=== PATIENT | male | born 1960 ===

== ENCOUNTER 2020-04-21 07:57 | Outpatient (REF) | payer MEDICARE, MEDICAID, SELFPAY ==
[2020-04-21 08:45] LABS: MANUAL DIFF FLAG NO
[2020-04-21 08:51] LABS: Basophils Absolute Auto 0.1 X10*3/uL (0.0-0.2); Basophils Percent Auto 0.9 % (0-2); Eosinophils Absolute Auto 0.4 X10*3/uL (0.0-0.4); Eosinophils Percent Auto 6.8 % (0-4); Hematocrit 43.7 % (42-52); Hemoglobin 14.6 g/dl (14.0-18.0); Imm Gran Abs Auto 0.01 X10*3/uL (0.00-0.03); Imm Gran Pct Auto 0.2 % (0.0-0.4); Lymphocytes Absolute Auto 2.6 X10*3/uL (1.2-4.9); Lymphocytes Percent Auto 48.3 % (20-40); Mean Corpuscular HGB Conc 33.4 g/dl (31.0-36.0); Mean Corpuscular Volume 86.7 fL (80-98); Monocytes Absolute Auto 0.5 X10*3/uL (0.1-1.2); Monocytes Percent Auto 9.2 % (2-11); Neutrophils Absolute Auto 1.8 X10*3/uL (2.0-8.3); Neutrophils Percent Auto 34.6 % (45-73); Platelet Count 264 X10*3/uL (160-400); Red Blood Count 5.04 X10*6/uL (4.60-5.80); Red Cell Distribution Width 12.4 % (11.0-16.0); White Blood Count 5.3 X10*3/uL (4.8-10.8)
[2020-04-21 09:59] LABS: Alanine Aminotransferase 22 U/L (0-40); Albumin Level 4.4 g/dL (3.5-5.0); Alkaline Phosphatase 57 U/L (39-117); Anion Gap 11 (12-20); Aspartate Amino Transferase 21 U/L (5-37); Bilirubin Total 0.5 mg/dL (0.0-1.0); Blood Urea Nitrogen 13 mg/dL (9-16); Calcium 9.3 mg/dL (8.4-10.2); Carbon Dioxide 28 mmol/L (22-29); Chloride 104 mmol/L (96-108); Cholesterol 241 mg/dL; Estimated Glomerular Filt Rate > 60; Glucose Fasting 96 mg/dL (60-99); HDL Cholesterol 35 mg/dL; LDL Cholesterol Calculated 167 mg/dl; Potassium 4.7 mmol/l (3.3-5.1); Sodium 138 mmol/L (135-145); Total Protein 7.8 g/dL (6.5-8.0); Triglycerides 197 mg/dL
== END 2020-04-21 07:58 | disposition home or self-care (01) ==
LOC: HO.LAB 07:57
PROVIDERS: Visit Provider Internal Medicine Medical Oncology
DX: E78.5 Hyperlipidemia, unspecified (principal); K21.9 Gastro-esophageal reflux disease without esophagitis; D72.820 Lymphocytosis (symptomatic)
CPT/HCPCS: 36415; 80053; 80061; 85025

== ENCOUNTER → 2020-05-13 09:52 | Outpatient (BNVA) | payer MEDICARE, MEDICAID, SELFPAY | PROVIDERS: PCP Internal Medicine Medical Oncology; Referring Provider Internal Medicine Medical Oncology; Visit Provider Orthopaedic Surgery | DX: M22.2X2 Patellofemoral disorders, left knee (principal) | CPT/HCPCS: 99212 ==

== ENCOUNTER 2020-07-12 07:39 | Outpatient (REF) | payer MEDICARE, MEDICAID, SELFPAY ==
[2020-07-12 08:16] LABS: MANUAL DIFF FLAG NO
[2020-07-12 08:18] LABS: Basophils Percent Auto 0.7 % (0-2); Eosinophils Absolute Auto 0.3 X10*3/uL (0.0-0.4); Hematocrit 42.3 % (42-52); Hemoglobin 14.1 g/dl (14.0-18.0); Imm Gran Abs Auto 0.01 X10*3/uL (0.00-0.03); Imm Gran Pct Auto 0.2 % (0.0-0.4); Lymphocytes Absolute Auto 2.8 X10*3/uL (1.2-4.9); Lymphocytes Percent Auto 49.3 % (20-40); Mean Corpuscular HGB Conc 33.3 g/dl (31.0-36.0); Mean Corpuscular Hemoglobin 28.6 pg (27.0-33.0); Mean Corpuscular Volume 85.8 fL (80-98); Mean Platelet Volume 9.7 fL (9.4-12.4); Monocytes Absolute Auto 0.5 X10*3/uL (0.1-1.2); Monocytes Percent Auto 9.4 % (2-11); Neutrophils Percent Auto 34.4 % (45-73); Platelet Count 261 X10*3/uL (160-400); Red Blood Count 4.93 X10*6/uL (4.60-5.80); Red Cell Distribution Width 12.2 % (11.0-16.0); White Blood Count 5.7 X10*3/uL (4.8-10.8)
[2020-07-12 08:46] LABS: Alanine Aminotransferase 20 U/L (0-40); Albumin Level 4.4 g/dL (3.5-5.0); Alkaline Phosphatase 58 U/L (39-117); Anion Gap 11 (12-20); Aspartate Amino Transferase 17 U/L (5-37); Bilirubin Total 0.3 mg/dL (0.0-1.0); Blood Urea Nitrogen 13 mg/dL (9-16); Calcium 9.3 mg/dL (8.4-10.2); Carbon Dioxide 29 mmol/L (22-29); Chloride 104 mmol/L (96-108); Cholesterol 236 mg/dL; Estimated Glomerular Filt Rate > 60; Glucose Fasting 104 mg/dL (60-99); HDL Cholesterol 36 mg/dL; LDL Cholesterol Calculated 168 mg/dl; Potassium 4.7 mmol/l (3.3-5.1); Sodium 139 mmol/L (135-145); Total Protein 7.7 g/dL (6.5-8.0); Triglycerides 164 mg/dL
== END 2020-07-12 07:40 | disposition home or self-care (01) ==
LOC: HO.LAB 07:39
PROVIDERS: PCP Internal Medicine Medical Oncology; Visit Provider Internal Medicine Medical Oncology
DX: E78.5 Hyperlipidemia, unspecified (principal); E66.3 Overweight; E66.9 Obesity, unspecified
CPT/HCPCS: 36415; 80053; 80061; 85025

== ENCOUNTER 2020-08-13 10:59 | Outpatient (REF) | payer MEDICARE, MEDICAID, SELFPAY ==
--- NOTE | ~2020-08-13 | XR_ITS ---
EXAMINATION: XR FOOT, RIGHT CLINICAL INFORMATION: Pain right foot COMPARISON: Radiographs right foot 02/03/2016 TECHNIQUE: AP, lateral, and oblique views of the right foot. FINDINGS: There is a nondisplaced comminuted fracture involving the distal phalanx great toe with longitudinal and horizontal components. The articular surface appears intact. There is no dislocation or destructive process. The remainder of the bony structures appear intact. There is no focal joint narrowing or erosive changes. Bony mineralization normal. XR/XR foot RT min 3V IMPRESSION: Nondisplaced comminuted fracture distal phalanx great toe.
== END 2020-08-13 11:00 | disposition home or self-care (01) ==
LOC: HO.XRAY 10:59
PROVIDERS: PCP Internal Medicine Medical Oncology; Visit Provider Internal Medicine Medical Oncology
DX: M79.671 Pain in right foot (principal)
CPT/HCPCS: 73630

== ENCOUNTER 2020-11-08 07:24 | Outpatient (REF) | payer MEDICARE, MEDICAID, SELFPAY ==
[2020-11-08 07:54] LABS: MANUAL DIFF FLAG NO
[2020-11-08 07:57] LABS: Basophils Absolute Auto 0.1 X10*3/uL (0.0-0.2); Basophils Percent Auto 0.9 % (0-2); Eosinophils Absolute Auto 0.3 X10*3/uL (0.0-0.4); Eosinophils Percent Auto 4.9 % (0-4); Hematocrit 40.2 % (42-52); Hemoglobin 13.4 g/dl (14.0-18.0); Imm Gran Abs Auto 0.01 X10*3/uL (0.00-0.03); Imm Gran Pct Auto 0.2 % (0.0-0.4); Lymphocytes Absolute Auto 2.8 X10*3/uL (1.2-4.9); Lymphocytes Percent Auto 48.2 % (20-40); Mean Corpuscular HGB Conc 33.3 g/dl (31.0-36.0); Mean Corpuscular Hemoglobin 28.5 pg (27.0-33.0); Mean Corpuscular Volume 85.5 fL (80-98); Mean Platelet Volume 9.7 fL (9.4-12.4); Monocytes Absolute Auto 0.6 X10*3/uL (0.1-1.2); Monocytes Percent Auto 10.5 % (2-11); Neutrophils Percent Auto 35.3 % (45-73); Platelet Count 272 X10*3/uL (160-400); Red Cell Distribution Width 12.5 % (11.0-16.0); White Blood Count 5.7 X10*3/uL (4.8-10.8)
[2020-11-08 08:25] LABS: Alanine Aminotransferase 19 U/L (0-40); Albumin Level 4.2 g/dL (3.5-5.0); Alkaline Phosphatase 58 U/L (39-117); Anion Gap 11 (12-20); Aspartate Amino Transferase 18 U/L (5-37); Bilirubin Total 0.6 mg/dL (0.0-1.0); Blood Urea Nitrogen 15 mg/dL (9-16); Calcium 9.4 mg/dL (8.4-10.2); Carbon Dioxide 27 mmol/L (22-29); Chloride 106 mmol/L (96-108); Cholesterol 223 mg/dL; Estimated Glomerular Filt Rate > 60; Glucose Fasting 97 mg/dL (60-99); HDL Cholesterol 34 mg/dL; LDL Cholesterol Calculated 170 mg/dl; Potassium 4.5 mmol/L (3.3-5.1); Sodium 139 mmol/L (135-145); Total Protein 7.5 g/dL (6.5-8.0); Triglycerides 95 mg/dL
== END 2020-11-08 07:25 | disposition home or self-care (01) ==
LOC: HO.LAB 07:24
PROVIDERS: PCP Internal Medicine Medical Oncology; Visit Provider Internal Medicine Medical Oncology
DX: E78.5 Hyperlipidemia, unspecified (principal); E66.3 Overweight
CPT/HCPCS: 36415; 80053; 80061; 85025

== ENCOUNTER → 2020-12-24 14:58 | Outpatient (BNVA) | payer MEDICARE, MEDICAID, SELFPAY | PROVIDERS: PCP Internal Medicine Medical Oncology; Visit Provider Nurse Practitioner Family | DX: Z12.11 Encounter for screening for malignant neoplasm of colon (principal); K59.00 Constipation, unspecified | CPT/HCPCS: 99202 ==

== ENCOUNTER 2021-02-27 11:24 | Day surgery (SDC) | payer MEDICARE, MEDICAID, SELFPAY ==
[2021-01-21 15:21] VITALS: BMI 30.2
--- NOTE | 2021-02-12 10:12 | P.CONAN_ITS ---
Documented by User: Jacki Hicks NP 02/12/21 10:13 HPI - Anesthesia Eval Consult details Narrative: 60yo M for Colonoscopy [facility] Active Problems Active Problems: All Active Problems (Updated 02/06/21 @ 14:17 by Monica Bird RN) Patellofemoral pain syndrome of left knee (Acute) Past Medical History Medical History Arthritis Elevated cholesterol Family History Family History Father No problems noted. Mother No problems noted. 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 Allergies Allergy/AdvReac Type Severity Reaction Status Date / Time No Known Allergies Allergy Verified 02/27/21 12:50 Home Medications Medication Instructions Recorded Confirmed Last Taken Type acetaminophen 500 mg capsule 500 mg PO Q6H PRN 05/12/20 02/06/21 Unknown History Exam Exam Date and Time: February 12, 2021 1012 Height,Weight and Vital Signs: Height 5 ft 8 in Weight 90.265 kg Narrative Narrative: Laboratory Tests 11/08/20 11/08/20 07:32 07:32 WBC 5.7 Hgb 13.4 L Hct 40.2 L Plt Count 272 Sodium 139 Potassium 4.5 Chloride 106 Carbon Dioxide 27 BUN 15 Creatinine 1.16 Assessment and Plan Assessment Anesthesia Assessment: Chart Reviewed Documented by User: Kade Ford MD 02/27/21 13:47 [facility] Past Medical History Medical History Arthritis Elevated cholesterol Family History Family History Father No problems noted. Mother No problems noted. 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
[2021-02-23 16:15] VITALS: BMI 30.2
[2021-02-27 12:17] VITALS: BP 147/82; PULSE 76; RESP 16; TEMP 36.6; O2SAT 97
[2021-02-27] MEDS: Lactated Ringers 1,000 ML 100 ML IVCONT (12:49)
--- NOTE | 2021-02-27 13:13 | MHC.SHP ---
Pre-Procedural Eval Section A Date of Service: 02/27/21 The patient is an INPATIENT: No The History & Physical has been completed within 30 days and I have reviewed it.: No Section B Chief Complaint: Screening, Constipation Details of Present Illness: Colon cancer screening, constipation Relevant Family History (Specify if Yes): No Relevant Social History: None Present Medications: see Short Stay Collaborative assessment Medical History: Significant History (Left knee pain) History of Previous Operations: Relevant previous surgery/procedure and date(s) (History of arthroscopy of right knee History of back surgery History of total right knee replacement (~03/27/12)) Allergies: Allergies Allergy/AdvReac Type Severity Reaction Status Date / Time No Known Allergies Allergy Verified 02/27/21 12:50 Review of Systems Sugical H&P ROS: Negative: Constitution, Cardiovascular, Respiratory and Gastrointestinal Exam Surgical H&P Exam: Normal: Heart, Normal: Lungs, Normal: Extremities and Normal: Abdomen Plan Diagnosis/Plan: Unchanged I have reviewed the history and physical and performed a pertinent physical examination on my patient. No changes have occurred unless specified.
--- NOTE | 2021-02-27 14:03 | W.PM.OPN ---
Operative Note Operative Note Date of Service: 02/27/21 Narrative: Pre-op diagnosis:?Colon cancer screening mild constipation Post-op diagnosis:?other (Colon polyp, diverticulosis, hemorrhoids) Procedure:? COLONOSCOPY TILL CECUM WITH BIOPSIES Consent: Indications for the procedure and potential complications of bleeding, perforation, reaction to medications and missed diagnosis were discussed with the patient and informed consent was obtained. Instrument: Olympus PCF H 190 L variable stiffness pediatric colonoscope Monitoring: Vital signs and clinical assessment, intermittent blood pressure monitoring, continuous EKG monitoring, Pulse oximetry and Carbon Dioxide monitoring were done throughout the procedure. Colon withdrawl time was 20 minutes. Procedure: The patient was placed in the left lateral decubitis position and pre-procedure medications were administered. After a digital rectal examination of the ano-rectum, the video colonoscope was inserted into the rectum and advanced through the colon to the cecum. The colonoscope was slowly withdrawn in a retrograde panoramic fashion and the colon mucosa was carefully examined including a retroflexed view of the rectum. Findings and interventions are described below. Procedure Difficulty: Without difficulty Findings: Terminal Ileum: Not evaluated Cecum:? Normal Ascending Colon:? Normal Transverse Colon:? Normal Descending Colon:? Moderate diverticulosis Sigmoid Colon:? Moderate diverticulosis Rectum: A 5-6 mm sessile polyp removed with a cold bx Ano-rectum:? Moderate internal hemorrhoids Colon preparation:? Good after some irrigation Impression and Post Procedure Diagnosis: Colonoscopy Findings: One small polyp removed Moderate diverticulosis seen in the left colon Moderate hemorrhoids on retroflexed exam. Plan: Await pathology results - patient will be sent a letter with biopsy results Repeat Colonoscopy interval based on path results - in 5 years if polyps are adenomatous and 10 years if polyps are hyperplastic. Colon polyps and diverticulosis handouts were given in the discharge area Surgeon:?Katherine Austin MD Anesthesia:?MAC (Tanisha Fang CRNA) Was an Alum Plant Operator used for this Procedure?:?Yes Alum Plant Operator:?Matheus Qureshi Estimated blood loss (mL):?0 Pathology:?other (A- RECTAL POLYP) Condition:?stable Disposition:?PACU
[2021-02-27 14:45] VITALS: BP 97/65; PULSE 75; RESP 16; TEMP 36.1; O2SAT 97
[2021-02-27 15:00] VITALS: BP 108/71; PULSE 68; RESP 18; O2SAT 98
== END 2021-02-27 15:36 | disposition home or self-care (01) ==
PROVIDERS: PCP Internal Medicine Medical Oncology; Visit Provider Internal Medicine Gastroenterology
PROC: 0DJD8ZZ Inspection of Lower Intestinal Tract, Via Natural or Artificial Opening Endoscopic (ICD-10-PCS; CPT 45378; principal; 2021-02-27 13:10)
DX: Z12.11 Encounter for screening for malignant neoplasm of colon (principal); K59.00 Constipation, unspecified; K63.5 Polyp of colon; K57.30 Diverticulosis of large intestine without perforation or abscess without bleeding; K64.8 Other hemorrhoids
CPT/HCPCS: 45380; 88305

== ENCOUNTER 2021-03-10 07:28 | Outpatient (REF) | payer MEDICARE, MEDICAID, SELFPAY ==
[2021-03-10 08:48] LABS: MANUAL DIFF FLAG NO
[2021-03-10 08:56] LABS: Basophils Absolute Auto 0.1 X10*3/uL (0.0-0.2); Basophils Percent Auto 0.9 % (0-2); Eosinophils Absolute Auto 0.3 X10*3/uL (0.0-0.4); Eosinophils Percent Auto 5.2 % (0-4); Hematocrit 41.5 % (42-52); Hemoglobin 13.9 g/dl (14.0-18.0); Imm Gran Abs Auto 0.01 X10*3/uL (0.00-0.03); Imm Gran Pct Auto 0.2 % (0.0-0.4); Lymphocytes Absolute Auto 2.8 X10*3/uL (1.2-4.9); Mean Corpuscular HGB Conc 33.5 g/dl (31.0-36.0); Mean Corpuscular Hemoglobin 28.6 pg (27.0-33.0); Mean Corpuscular Volume 85.4 fL (80-98); Monocytes Absolute Auto 0.6 X10*3/uL (0.1-1.2); Monocytes Percent Auto 9.9 % (2-11); Neutrophils Absolute Auto 1.9 X10*3/uL (2.0-8.3); Neutrophils Percent Auto 33.8 % (45-73); Platelet Count 275 X10*3/uL (160-400); Red Blood Count 4.86 X10*6/uL (4.60-5.80); Red Cell Distribution Width 12.4 % (11.0-16.0); White Blood Count 5.6 X10*3/uL (4.8-10.8)
[2021-03-10 09:15] LABS: Alanine Aminotransferase 15 U/L (0-40); Albumin Level 4.2 g/dL (3.5-5.0); Alkaline Phosphatase 54 U/L (39-117); Anion Gap 11 (12-20); Aspartate Amino Transferase 19 U/L (5-37); Bilirubin Total 0.6 mg/dL (0.0-1.0); Blood Urea Nitrogen 12 mg/dL (9-16); Calcium 9.7 mg/dL (8.4-10.2); Carbon Dioxide 27 mmol/L (22-29); Chloride 107 mmol/L (96-108); Cholesterol 217 mg/dL; Estimated Glomerular Filt Rate > 60; Glucose Fasting 101 mg/dL (60-99); HDL Cholesterol 33 mg/dL; LDL Cholesterol Calculated 159 mg/dl; Potassium 4.9 mmol/L (3.3-5.1); Sodium 140 mmol/L (135-145); Total Protein 7.4 g/dL (6.5-8.0); Triglycerides 129 mg/dL
== END 2021-03-10 07:29 | disposition home or self-care (01) ==
LOC: HO.LAB 07:28
PROVIDERS: PCP Internal Medicine Medical Oncology; Visit Provider Internal Medicine Medical Oncology
DX: Z12.5 Encounter for screening for malignant neoplasm of prostate (principal); E78.5 Hyperlipidemia, unspecified; E66.9 Obesity, unspecified
CPT/HCPCS: 36415; 80053; 80061; 84153; 85025

== ENCOUNTER 2021-07-14 08:45 | Outpatient (REF) | payer MEDICARE, MEDICAID, SELFPAY ==
[2021-07-14 09:16] LABS: MANUAL DIFF FLAG NO
[2021-07-14 09:18] LABS: Basophils Absolute Auto 0.1 X10*3/uL (0.0-0.2); Basophils Percent Auto 0.9 % (0-2); Eosinophils Absolute Auto 0.4 X10*3/uL (0.0-0.4); Eosinophils Percent Auto 7.5 % (0-4); Hemoglobin 14.3 g/dl (14.0-18.0); Imm Gran Abs Auto 0.01 X10*3/uL (0.00-0.03); Imm Gran Pct Auto 0.2 % (0.0-0.4); Lymphocytes Absolute Auto 2.7 X10*3/uL (1.2-4.9); Lymphocytes Percent Auto 50.6 % (20-40); Mean Corpuscular HGB Conc 33.3 g/dl (31.0-36.0); Mean Corpuscular Hemoglobin 28.9 pg (27.0-33.0); Mean Corpuscular Volume 86.9 fL (80.0-98.0); Mean Platelet Volume 9.6 fL (9.4-12.4); Monocytes Absolute Auto 0.5 X10*3/uL (0.1-1.2); Monocytes Percent Auto 10.1 % (2-11); Neutrophils Absolute Auto 1.7 x10*3/uL (2.0-8.3); Neutrophils Percent Auto 30.7 % (45-73); Platelet Count 268 X10*3/uL (160-400); Red Blood Count 4.95 X10*6/uL (4.60-5.80); Red Cell Distribution Width 12.7 % (11.0-16.0); White Blood Count 5.4 X10*3/uL (4.8-10.8)
[2021-07-14 09:46] LABS: Alanine Aminotransferase 17 U/L (0-40); Albumin Level 4.4 g/dL (3.5-5.0); Alkaline Phosphatase 53 U/L (39-117); Anion Gap 12 (12-20); Aspartate Amino Transferase 21 U/L (5-37); Bilirubin Total 0.6 mg/dL (0.0-1.0); Blood Urea Nitrogen 12 mg/dL (9-16); Carbon Dioxide 27 mmol/L (22-29); Chloride 107 mmol/L (96-108); Cholesterol 250 mg/dL; Estimated Glomerular Filt Rate > 60; Glucose Fasting 104 mg/dL (60-99); HDL Cholesterol 37 mg/dL; LDL Cholesterol Calculated 190 mg/dl; Potassium 4.9 mmol/L (3.3-5.1); Sodium 141 mmol/L (135-145); Total Protein 8.2 g/dL (6.5-8.0); Triglycerides 115 mg/dL
== END 2021-07-14 08:46 | disposition home or self-care (01) ==
LOC: HO.LAB 08:45
PROVIDERS: PCP Internal Medicine Medical Oncology; Visit Provider Internal Medicine Medical Oncology
DX: E66.3 Overweight (principal); E78.5 Hyperlipidemia, unspecified
CPT/HCPCS: 36415; 80053; 80061; 85025

== ENCOUNTER 2021-10-31 07:38 | Outpatient (REF) | payer MEDICARE, MEDICAID, SELFPAY ==
[2021-10-31 08:00] LABS: MANUAL DIFF FLAG NO
[2021-10-31 08:22] LABS: Basophils Absolute Auto 0.1 X10*3/uL (0.0-0.2); Basophils Percent Auto 1.4 % (0-2); Eosinophils Absolute Auto 0.4 X10*3/uL (0.0-0.4); Hematocrit 42.3 % (42.0-52.0); Hemoglobin 14.1 g/dl (14.0-18.0); Imm Gran Abs Auto 0.01 X10*3/uL (0.00-0.03); Imm Gran Pct Auto 0.2 % (0.0-0.4); Lymphocytes Absolute Auto 2.5 X10*3/uL (1.2-4.9); Mean Corpuscular HGB Conc 33.3 g/dl (31.0-36.0); Mean Corpuscular Hemoglobin 28.4 pg (27.0-33.0); Mean Corpuscular Volume 85.1 fL (80.0-98.0); Monocytes Absolute Auto 0.5 X10*3/uL (0.1-1.2); Monocytes Percent Auto 10.3 % (2-11); Neutrophils Absolute Auto 1.7 x10*3/uL (2.0-8.3); Neutrophils Percent Auto 32.1 % (45-73); Platelet Count 257 X10*3/uL (160-400); Red Blood Count 4.97 X10*6/uL (4.60-5.80); Red Cell Distribution Width 12.7 % (11.0-16.0); White Blood Count 5.1 X10*3/uL (4.8-10.8)
[2021-10-31 08:39] LABS: Alanine Aminotransferase 19 U/L (0-40); Albumin Level 4.2 g/dL (3.5-5.0); Alkaline Phosphatase 51 U/L (39-117); Anion Gap 14 (12-20); Aspartate Amino Transferase 20 U/L (5-37); Bilirubin Total 0.6 mg/dL (0.0-1.0); Blood Urea Nitrogen 12 mg/dL (9-16); Calcium 9.5 mg/dL (8.4-10.2); Carbon Dioxide 24 mmol/L (22-29); Chloride 106 mmol/L (96-108); Cholesterol 209 mg/dL; Estimated Glomerular Filt Rate 59; Glucose Fasting 102 mg/dL (60-99); HDL Cholesterol 34 mg/dL; LDL Cholesterol Calculated 158 mg/dl; Potassium 4.7 mmol/L (3.3-5.1); Sodium 139 mmol/L (135-145); Total Protein 7.8 g/dL (6.5-8.0); Triglycerides 86 mg/dL
== END 2021-10-31 07:39 | disposition home or self-care (01) ==
LOC: HO.LAB 07:38
PROVIDERS: PCP Internal Medicine Medical Oncology; Visit Provider Internal Medicine Medical Oncology
DX: E78.5 Hyperlipidemia, unspecified (principal); K21.9 Gastro-esophageal reflux disease without esophagitis; M17.9 Osteoarthritis of knee, unspecified
CPT/HCPCS: 36415; 80053; 80061; 85025

== ENCOUNTER 2021-12-29 14:16 | Outpatient (REF) | payer MEDICARE, MEDICAID, SELFPAY ==
--- NOTE | ~2021-12-29 | XR_ITS ---
EXAMINATION: XR CHEST CLINICAL INFORMATION: Chronic cough. COMPARISON: 07/02/2017 TECHNIQUE: 2 views of the chest were obtained. FINDINGS: Low lung volumes. No focal consolidation. Mild central bronchial wall prominence. No pleural effusion. Cardiac silhouette is unchanged. XR/XR chest 2V IMPRESSION: Prominence of the central bronchi possibly representing bronchitis. Advise clinical correlation.
== END 2021-12-29 14:17 | disposition home or self-care (01) ==
LOC: HO.XRAY 14:16
PROVIDERS: PCP Internal Medicine Medical Oncology; Visit Provider Internal Medicine Medical Oncology
DX: R05.3 Chronic cough (principal)
CPT/HCPCS: 71046

== ENCOUNTER 2022-05-28 | Outpatient (REF) | payer MEDICARE, MEDICAID, SELFPAY ==
--- NOTE | ~2022-05-28 | XR_ITS ---
EXAMINATION: XR knee standing BI, XR knee RT 2V CLINICAL INFORMATION: Reason for Exam M25.569 - Pain in unspecified knee COMPARISON: None. TECHNIQUE: 2 views of the right knee and standing view of the bilateral knees XR/XR knee standing BI FINDINGS/IMPRESSION: * No acute fracture or dislocation. * Postoperative changes related to right total knee arthroplasty without evidence of hardware complication. No large effusion. * No soft tissue abnormality.
--- NOTE | ~2022-05-28 | XR_ITS ---
EXAMINATION: XR knee standing BI, XR knee RT 2V CLINICAL INFORMATION: Reason for Exam M25.569 - Pain in unspecified knee COMPARISON: None. TECHNIQUE: 2 views of the right knee and standing view of the bilateral knees XR/XR knee RT 2V FINDINGS/IMPRESSION: * No acute fracture or dislocation. * Postoperative changes related to right total knee arthroplasty without evidence of hardware complication. No large effusion. * No soft tissue abnormality.
== END 2022-05-28 00:01 | disposition home or self-care (01) ==
LOC: HO.HOSX
PROVIDERS: Visit Provider Physician Assistant
DX: T84.84XA Pain due to internal orthopedic prosthetic devices, implants and grafts, initial encounter (principal); Z96.651 Presence of right artificial knee joint
CPT/HCPCS: 73560; 73565; 99212

== ENCOUNTER → 2022-06-25 11:20 | Outpatient (BNVA) | payer MEDICARE, MEDICAID, SELFPAY | PROVIDERS: PCP Internal Medicine Medical Oncology; Visit Provider Orthopaedic Surgery | DX: Z96.659 Presence of unspecified artificial knee joint (principal) | CPT/HCPCS: 99212 ==

== ENCOUNTER 2022-08-14 06:54 | Outpatient (REF) | payer MEDICARE, MEDICAID, SELFPAY ==
[2022-08-14 07:10] LABS: MANUAL DIFF FLAG NO
[2022-08-14 08:07] LABS: Basophils Absolute Auto 0.1 X10*3/uL (0.0-0.2); Basophils Percent Auto 0.9 % (0-2); Eosinophils Absolute Auto 0.4 X10*3/uL (0.0-0.4); Eosinophils Percent Auto 6.3 % (0-4); Hematocrit 43.6 % (42.0-52.0); Hemoglobin 14.5 g/dl (14.0-18.0); Imm Gran Abs Auto 0.02 X10*3/uL (0.00-0.03); Imm Gran Pct Auto 0.3 % (0.0-0.4); Lymphocytes Absolute Auto 2.9 X10*3/uL (1.2-4.9); Lymphocytes Percent Auto 45.5 % (20-40); Mean Corpuscular HGB Conc 33.3 g/dl (31.0-36.0); Mean Corpuscular Hemoglobin 28.5 pg (27.0-33.0); Mean Corpuscular Volume 85.8 fL (80.0-98.0); Mean Platelet Volume 10.2 fL (9.4-12.4); Monocytes Absolute Auto 0.6 X10*3/uL (0.1-1.2); Monocytes Percent Auto 9.1 % (2-11); Neutrophils Absolute Auto 2.4 x10*3/uL (2.0-8.3); Neutrophils Percent Auto 37.9 % (45-73); Platelet Count 274 X10*3/uL (160-400); Red Blood Count 5.08 X10*6/uL (4.60-5.80); Red Cell Distribution Width 12.8 % (11.0-16.0); White Blood Count 6.4 X10*3/uL (4.8-10.8)
[2022-08-14 08:44] LABS: Alanine Aminotransferase 17 U/L (0-40); Albumin Level 4.3 g/dL (3.5-5.0); Alkaline Phosphatase 51 U/L (39-117); Anion Gap 12 (12-20); Aspartate Amino Transferase 22 U/L (5-37); Bilirubin Total 0.5 mg/dL (0.0-1.0); Blood Urea Nitrogen 11 mg/dL (9-16); Calcium 9.6 mg/dL (8.4-10.2); Carbon Dioxide 26 mmol/L (22-29); Chloride 107 mmol/L (96-108); Cholesterol 241 mg/dL; Estimated Glomerular Filt Rate > 60; Glucose Fasting 104 mg/dL (60-99); HDL Cholesterol 32 mg/dL; LDL Cholesterol Calculated 177 mg/dl; Potassium 4.9 mmol/L (3.3-5.1); Sodium 140 mmol/L (135-145); Total Protein 7.6 g/dL (6.5-8.0); Triglycerides 160 mg/dL
[2022-08-14 08:50] LABS: PSA,Total (Free>4and<10) 0.36 ng/mL (0.00-4.00)
== END 2022-08-14 06:55 | disposition home or self-care (01) ==
LOC: HO.LAB 06:54
PROVIDERS: PCP Internal Medicine Medical Oncology; Visit Provider Internal Medicine Medical Oncology
DX: Z00.00 Encounter for general adult medical examination without abnormal findings (principal); Z12.5 Encounter for screening for malignant neoplasm of prostate; E78.5 Hyperlipidemia, unspecified; E66.9 Obesity, unspecified; N40.0 Benign prostatic hyperplasia without lower urinary tract symptoms
CPT/HCPCS: 36415; 80053; 80061; 84153; 85025

== ENCOUNTER 2023-08-27 07:02 | Outpatient (REF) | payer MEDICARE, SELFPAY ==
[2023-08-27 07:13] LABS: MANUAL DIFF FLAG NO
[2023-08-27 07:54] LABS: Basophils Absolute Auto 0.1 X10*3/uL (0.0-0.2); Basophils Percent Auto 1.1 % (0-2); Eosinophils Absolute Auto 0.3 X10*3/uL (0.0-0.4); Eosinophils Percent Auto 4.6 % (0-4); Hematocrit 44.6 % (42.0-52.0); Hemoglobin 15.3 g/dl (14.0-18.0); Imm Gran Abs Auto 0.02 X10*3/uL (0.00-0.03); Imm Gran Pct Auto 0.3 % (0.0-0.4); Lymphocytes Absolute Auto 3.1 X10*3/uL (1.2-4.9); Lymphocytes Percent Auto 50.3 % (20-40); Mean Corpuscular HGB Conc 34.3 g/dl (31.0-36.0); Mean Corpuscular Hemoglobin 28.8 pg (27.0-33.0); Monocytes Absolute Auto 0.6 X10*3/uL (0.1-1.2); Monocytes Percent Auto 9.7 % (2-11); Neutrophils Absolute Auto 2.1 x10*3/uL (2.0-8.3); Platelet Count 274 X10*3/uL (160-400); Red Blood Count 5.31 X10*6/uL (4.60-5.80); Red Cell Distribution Width 12.6 % (11.0-16.0); White Blood Count 6.1 X10*3/uL (4.8-10.8)
[2023-08-27 08:28] LABS: Alanine Aminotransferase 19 U/L (0-40); Albumin Level 4.3 g/dL (3.5-5.0); Alkaline Phosphatase 50 U/L (39-117); Anion Gap 15 (12-20); Aspartate Amino Transferase 21 U/L (5-37); Bilirubin Total 0.5 mg/dL (0.0-1.0); Blood Urea Nitrogen 11 mg/dL (9-16); Calcium 9.9 mg/dL (8.4-10.2); Carbon Dioxide 28 mmol/L (22-29); Chloride 103 mmol/L (96-108); Cholesterol 222 mg/dL (<200); Estimated Glomerular Filt Rate > 60; Glucose Fasting 99 mg/dL (60-99); HDL Cholesterol 35 mg/dL (>40); LDL Cholesterol Calculated 155 mg/dL (<100); Potassium 4.5 mmol/L (3.3-5.1); Sodium 141 mmol/L (135-145); Total Protein 8.1 g/dL (6.5-8.0); Triglycerides 160 mg/dL (<150)
[2023-08-27 08:47] LABS: Thyroid Stimulating Hormone 1.67 uIU/mL (0.32-4.0)
[2023-08-27 08:52] LABS: Folate 9.1 ng/mL (> or = 4.0); Vitamin B12 363 pg/mL (200-900)
== END 2023-08-27 07:03 | disposition home or self-care (01) ==
LOC: HO.LAB 07:02
PROVIDERS: PCP Internal Medicine Medical Oncology; Visit Provider Internal Medicine Medical Oncology
DX: E78.5 Hyperlipidemia, unspecified (principal); E66.9 Obesity, unspecified; R53.83 Other fatigue; E53.9 Vitamin B deficiency, unspecified
CPT/HCPCS: 36415; 80053; 80061; 82607; 82746; 84443; 85025

== ENCOUNTER 2023-11-08 13:56 | Outpatient (AMB) | payer MEDICARE, MEDICAID, SELFPAY ==
--- NOTE | 2023-11-08 14:13 | MHC.OFFVIS ---
Intake Visit Reasons: New Prob - Right 3rd Finger Tendon Adhesion Intake Note: Carlos is a 63 year old right hand dominant male who presents today for a evaluation of his right ring finger locking and catching. Patient reports ongoing locking for about 5 -6 weeks. He states that his finger locks in place daily. He express that he get numbness when his ring finger locks. Allergies No Known Allergies Allergy (Verified 11/08/23 14:16) HPI HPI New Prob - Right 3rd Finger Tendon Adhesion: Details: 63-year-old right hand dominant male who presents in the office today for an evaluation of right ring finger locking, catching, and numbness. Patient was referred to the office due to a complaint of right ring digit locking and catching. While in the office today the patient reports ongoing locking for about 5-6 weeks. He claims his finger locks in place daily. Confirms numbness when the right ring finger locks. Patient has no known allergy history. Patient is currently taking, as follows: -Acetaminophen 500 mg PO Q6H PRN -Docusate Sodium 100 mg PO bedtime Patient has a medical history, as follows: -Arthritis -Elevated cholesterol Patient has a surgical history, as follows: -History of revision of total knee arthroplasty ; 2013- Dr. Lazaro -History of back surgery; 1999- Lumbar -History of arthroscopy of right knee; 2017- Dr Lazaro -History of total right knee replacement [facility] Medical History Arthritis Elevated cholesterol Surgical History History of arthroscopy of right knee History of back surgery History of revision of total knee arthroplasty History of total right knee replacement (~03/27/12) Family History Father No problems noted. Mother No problems noted. 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 Review of Systems Const All systems reviewed & are unremarkable except as noted in HPI and below Physical Exam Const General: cooperative, healthy appearing, comfortable, no acute distress, well developed, alert and awake Orientation/consciousness: patient oriented x3 HEENT Head: Yes normal to inspection, Yes normocephalic and Yes atraumatic Eyes General: appearance normal, both eyes and all related structures Neck Neck: Yes normal visual inspection and Yes no lymphadenopathy Resp Effort & Inspection: normal respiratory effort and able to speak in complete sentences Cardio Rate: regular rate Peripheral pulses: Peripheral pulses 2+ throughout GI Inspection: Yes normal to inspection Palpation (GI): Soft to palpation Skin General skin exam: no rashes or lesions noted Neuro General: patient oriented x3 Extrem Other: Right hand: Normal to inspection. No ecchymosis, erythema, or edema. Ring finger active locking. Tenderness to palpation over the A1 liya. Able to perform full finger flexion, extension, abduction, adduction, finger cross, okay sign, and thumbs up without deficit. Able to make a closed fist. Sensation intact. Capillary refill is brisk. Radial pulse intact. Psych Mental Status: mental status grossly normal Assessment & Plan Assessment & Plan (1) Trigger finger, right ring finger: Code(s): M65.341 - Trigger finger, right ring finger Category: Medical Plan Mr. Cabrera is a 63-year-old right hand dominant male who presents in the office today for an evaluation of right ring finger locking, catching, and numbness. Patient was referred to the office due to a complaint of right ring digit locking and catching. While in the office today the patient reports ongoing locking for about 5-6 weeks. He claims his finger locks in place daily. Confirms numbness when the right ring finger locks. Patient has no known allergy history. Patient is currently taking, as follows: -Acetaminophen 500 mg PO Q6H PRN -Docusate Sodium 100 mg PO bedtime Patient has a medical history, as follows: -Arthritis -Elevated cholesterol Patient has a surgical history, as follows: -History of revision of total knee arthroplasty ; 2013- Dr. Lazaro -History of back surgery; 1999- Lumbar -History of arthroscopy of right knee; 2018- Dr Lazaro -History of total right knee replacement I discussed in detail the procedure and what to expect pre and post operatively. We discussed the risks, benefits and alternatives to the surgery and the rehabilitation course. The risks include infection, bleeding, nerve injury, ongoing pain, swelling, and stiffness, perioperative risk of injury to bones and soft tissues, and blood clots. I have answered all questions and with their understanding they have consented to move forward with a right ring finger, trigger finger release to be performed by Dr. Kathy Bonilla. Follow-up will be at the post operative appointment, or sooner if needed. Patient Instructions: Scribed by Sandra Mccarty director medical safety, for Evelyne Roberts PA-C on 11/08/2023 at 2:02 pm, EST. Coding Level of Care Code Est Pt Level 4 (14596) Diagnoses Trigger finger, right ring finger M65.341
== END 2023-11-08 15:11 | disposition home or self-care (01) ==
PROVIDERS: PCP Internal Medicine Medical Oncology; Visit Provider Physician Assistant
DX: M65.341 Trigger finger, right ring finger (principal)
CPT/HCPCS: 99214

== ENCOUNTER → 2023-11-08 13:56 | Outpatient (BNVA) | payer MEDICARE, MEDICAID, SELFPAY | PROVIDERS: PCP Internal Medicine Medical Oncology; Visit Provider Physician Assistant | DX: M65.341 Trigger finger, right ring finger (principal) | CPT/HCPCS: 99212 ==

== ENCOUNTER 2023-12-05 12:05 | Day surgery (SDC) | payer MEDICARE, MEDICAID, SELFPAY ==
[2023-12-05 14:27] VITALS: BMI 30.1
--- NOTE | 2023-12-05 14:54 | MHC.SHP ---
Pre-Procedural Eval Section A - 24 Hr Update-Section A only Date of Service: 12/05/23 The patient is an INPATIENT: No Changes since office visit: No Cold of Flu in the past 2 weeks, No New Medical Problems, No Changes in Medication and No Patient answered all questions The patient has been examined within 24 hours of the surgical procedure. The History & Physical has been completed within 30 days and I have reviewed it.: Yes Section B - Complete if H&P > 30 days Chief Complaint: Trigger finger, right ring finger Allergies: Allergies Allergy/AdvReac Type Severity Reaction Status Date / Time No Known Allergies Allergy Verified 12/05/23 14:28 Exam Exam Comment: Right ring finger trigger finger Plan Diagnosis/Plan: Unchanged I have reviewed the history and physical and performed a pertinent physical examination on my patient. No changes have occurred unless specified. Time Spent With Patient Time: Total time managing care of this patient today ____ minutes.
--- NOTE | 2023-12-05 14:54 | W.PM.OPN ---
Operative Note Operative Note Date of Service: 12/05/23 Narrative: Operative Note Preop diagnosis: 1. Right ring finger Trigger finger Postop diagnosis: 1. Right ring finger Trigger finger Procedure: 1. Right ring finger A1 liya release Surgeon: Kathy Bonilla MD Anesthesia: local block using 1% lidocaine with epinephrine Findings: No locking or catching after A1 liya release EBL: Less than 5 mL Tourniquet time: None Specimens: None Complications: None Disposition: Brought to recovery room in stable condition Plan: Follow-up for 10-14 days for wound check and suture removal Indications: The patient is 63 years old, with a right ring finger trigger finger that has been unresponsive to nonoperative management. The risks and benefits of operative treatment including but not limited to risk of damage to blood vessels, nerves, tendons, infection, persistent pain, persistent symptoms, recurrence or possible need for additional surgery were discussed with the patient and the patient wishes to proceed with surgery. Procedure: Once consent was obtained a local block was performed in the preop area using a combination of 1% lidocaine with epinephrine. The patient was then brought back to the operating suite and placed on the operative table in supine position. The right upper extremity was prepped and draped in a standard surgical fashion. Once assured that we had a good block, a 1.5 cm oblique incision was made centered over the A1 liya of the right ring finger . The incision was made through the skin to the subcutaneous tissues using a #15 blade. Careful dissection was made down to the level of the A1 liya using tenotomy scissors, with care being taken to protect the nearby neurovascular structures. A longitudinal incision was made in the A1 liya 1st using a #15 blade, then using tenotomy scissors under direct visualization. The A1 liya was noted to be thickened. Following our A1 liya release, we no longer saw any locking or catching of the digit with flexion and extension. Once satisfied with our A1 liya release the wound was copiously irrigated with normal saline and hemostasis was obtained with a brief period of local pressure. The skin edges were reapproximated with some 5.0 nylon suture material and a sterile dressing was applied. The patient appears to have tolerated the procedure well and with no complications. All digits were well vascularized at the conclusion of the case.
[2023-12-05 16:09] VITALS: BP 135/78; PULSE 67; RESP 16; TEMP 37.2; O2SAT 97
== END 2023-12-05 16:25 | disposition home or self-care (01) ==
PROVIDERS: PCP Internal Medicine Medical Oncology; Visit Provider Orthopaedic Surgery
PROC: (CPT 26055; principal; 2023-12-05 14:00)
DX: M65.341 Trigger finger, right ring finger (principal)
CPT/HCPCS: 26055; J0171

== ENCOUNTER → 2023-12-05 12:05 | Outpatient (BNV) | payer MEDICARE, MEDICAID, SELFPAY | PROVIDERS: PCP Internal Medicine Medical Oncology; Visit Provider Orthopaedic Surgery | DX: M65.341 Trigger finger, right ring finger (principal) | CPT/HCPCS: 26055 ==

== ENCOUNTER 2023-12-20 14:46 | Outpatient (AMB) | payer MEDICARE, MEDICAID, SELFPAY ==
--- NOTE | 2023-12-20 15:16 | A.OFFVIS_ITS ---
Intake Visit Reasons: PO RT RF trigger 12/05/23 AR Intake Note: Carlos is a 63 year old male who presents today post operatively s/p right ring finger trigger release, DOS 12/05/23 with AR. Patient reports he is doing well, states that he wakes up in the morning with his finger locked down into palm. Allergies No Known Allergies Allergy (Verified 12/05/23 14:28) HPI HPI PO RT RF trigger 12/05/23 AR: Details: Carlos is a 63 year old right hand dominant man who presents S/P right ring finger trigger release, DOS: 12/05/23. He says he has had a couple of episodes of locking of his ring finger since surgery He had no locking or catching before leaving the OR. He says he has been busy doing yard work in the last week. 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 [facility] Medical History Arthritis Elevated cholesterol Surgical History History of arthroscopy of right knee History of back surgery History of revision of total knee arthroplasty History of total right knee replacement (~03/27/12) Family History Father No problems noted. Mother No problems noted. 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 Sutures removed and Steri-Strips applied Initially he was seen with his ring finger MCP joint held in ~20 degrees of flexion secondary to some mild stiffness related to tightness across the flexor tendons. He can make a fist and extend all his digits, which we had him perform multiple times. No locking or catching seen today after having him make a fist repeatedly Sensation is intact Cap refill is brisk Psych Appearance: grossly normal Affect: normal affect Attitude: cooperative Assessment & Plan Assessment & Plan (1) Trigger finger, right ring finger: Code(s): M65.341 - Trigger finger, right ring finger Category: Medical Plan Assessment & Plan: 1. Right ring finger trigger finger, S/P release DOS: 12/05/23 The patient appears to be doing well post-operatively. He reports continuing issues with locking of his ring finger when he wakes up or when performing his at-home exercises. He had no locking or catching before leaving the OR and he had no locking today in clinic. I educated him about the post-operative course I discussed activity modifications, he is to lift nothing heavier than a cellphone for the next two weeks. Evidently he has been performing yard work in the last week since his surgery He will perform gentle ROM exercises at home He should avoid any underwater activities for the next 2-3 days He should gently massage about the incision site to reduce the risk of hypersensitivity It sounds like he may have had a couple of episodes of finger locking after his surgery. I educated him about this. If he continues to have these problems I definitely want to see him back as he may need another procedure. However, he had no locking or catching today in clinic and has not had any locking and several days. Hopefully he will go on to do well. He can follow up prn. . Scribed for Kathy Bonilla MD by Cameron Birmingham, medical assembler, on 12/20/23 at 3:55 PM, EST. Coding Level of Care Code Global (85197) Diagnoses Trigger finger, right ring finger M65.341
== END 2023-12-20 16:01 | disposition home or self-care (01) ==
PROVIDERS: PCP Internal Medicine Medical Oncology; Visit Provider Orthopaedic Surgery
DX: M65.341 Trigger finger, right ring finger (principal)
CPT/HCPCS: 99024

== ENCOUNTER → 2023-12-20 14:46 | Outpatient (BNVA) | payer MEDICARE, MEDICAID, SELFPAY | PROVIDERS: PCP Internal Medicine Medical Oncology; Visit Provider Orthopaedic Surgery | DX: M65.341 Trigger finger, right ring finger (principal) | CPT/HCPCS: 99212 ==

== ENCOUNTER 2024-01-07 07:31 | Outpatient (REF) | payer MEDICARE, MEDICAID, SELFPAY ==
[2024-01-07 07:49] LABS: MANUAL DIFF FLAG NO
[2024-01-07 09:10] LABS: Basophils Absolute Auto 0.1 X10*3/uL (0.0-0.2); Basophils Percent Auto 1.4 % (0-2); Eosinophils Absolute Auto 0.3 X10*3/uL (0.0-0.4); Eosinophils Percent Auto 5.4 % (0-4); Hematocrit 43.8 % (42.0-52.0); Hemoglobin 14.8 g/dl (14.0-18.0); Imm Gran Abs Auto 0.02 X10*3/uL (0.00-0.03); Imm Gran Pct Auto 0.4 % (0.0-0.4); Lymphocytes Absolute Auto 2.5 X10*3/uL (1.2-4.9); Mean Corpuscular HGB Conc 33.8 g/dl (31.0-36.0); Mean Corpuscular Hemoglobin 29.1 pg (27.0-33.0); Mean Corpuscular Volume 86.2 fL (80.0-98.0); Monocytes Absolute Auto 0.5 X10*3/uL (0.1-1.2); Neutrophils Absolute Auto 1.7 x10*3/uL (2.0-8.3); Neutrophils Percent Auto 34.8 % (45-73); Platelet Count 260 X10*3/uL (160-400); Red Blood Count 5.08 X10*6/uL (4.60-5.80); Red Cell Distribution Width 12.8 % (11.0-16.0)
[2024-01-07 10:30] LABS: Alanine Aminotransferase 18 U/L (0-40); Albumin Level 4.2 g/dL (3.5-5.0); Alkaline Phosphatase 49 U/L (39-117); Anion Gap 12 (12-20); Aspartate Amino Transferase 20 U/L (5-37); Bilirubin Total 0.4 mg/dL (0.0-1.0); Blood Urea Nitrogen 9 mg/dL (9-16); Calcium 9.2 mg/dL (8.4-10.2); Carbon Dioxide 26 mmol/L (22-29); Chloride 105 mmol/L (96-108); Cholesterol 222 mg/dL (<200); Estimated Glomerular Filt Rate > 60; Glucose Fasting 93 mg/dL (60-99); HDL Cholesterol 34 mg/dL (>40); LDL Cholesterol Calculated 152 mg/dL (<100); Potassium 4.4 mmol/L (3.3-5.1); Sodium 139 mmol/L (135-145); Total Protein 7.7 g/dL (6.5-8.0); Triglycerides 180 mg/dL (<150)
[2024-01-07 11:20] LABS: Prostate Specific Antigen 0.34 ng/mL (<0.05-4.0)
== END 2024-01-07 07:32 | disposition home or self-care (01) ==
LOC: HO.LAB 07:31
PROVIDERS: PCP Internal Medicine Medical Oncology; Visit Provider Internal Medicine Medical Oncology
DX: E66.9 Obesity, unspecified (principal); N40.0 Benign prostatic hyperplasia without lower urinary tract symptoms; Z12.5 Encounter for screening for malignant neoplasm of prostate
CPT/HCPCS: 36415; 80053; 80061; 84153; 85025

== ENCOUNTER 2024-02-01 13:55 | Outpatient (AMB) | payer MEDICARE, MEDICAID, SELFPAY ==
--- NOTE | 2024-02-01 13:57 | A.OFFVIS_ITS ---
Intake Visit Reasons: PO- RT RF trigger 12/05/23 AR/Hand locking up Intake Note: Carlos is a 63 year old male who presents today post operatively s/p right ring finger trigger release, DOS 12/05/23 with AR. Patient denies numbness, tingling. Pt states his finger is still locking especially at night. Pt states his ROM has improved. Allergies No Known Allergies Allergy (Verified 02/01/24 13:58) HPI HPI PO- RT RF trigger 12/05/23 AR/Hand locking up: Details: Carlos is a 63 year old right hand dominant man who presents S/P right ring finger trigger release, DOS: 12/05/23. He says he continues to have a couple of episodes of locking of his ring finger since his last appointment. He says this occurs primarily at night or with gripping activities such as using a weed whacker or taper/finisher. He had no locking or catching before leaving the OR, and he had no locking in clinic at his last appointment. He says he has improved his ROM overall, which he is happy about. He denies any numbness or tingling. [facility] Medical History Arthritis Elevated cholesterol Surgical History History of arthroscopy of right knee History of back surgery History of revision of total knee arthroplasty History of total right knee replacement (~03/27/12) Family History Father No problems noted. Mother No problems noted. 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 Review of Systems Const All systems reviewed & are unremarkable except as noted in HPI and below Physical Exam Const General: no acute distress and alert Orientation/consciousness: patient oriented x3 Neuro General: patient oriented x3 Extrem Other: Evaluation of Right Upper Extremity: The patient is alert, oriented, and in no acute distress Neuro: Median, Ulnar, Radial nerves motor and sensory intact and sensation is normal to the tips of all digits Vascular: Cap refill brisk ROM: He can make a fist and extend all his digits No locking or catching today in clinic His incision site is well healed, though he does have palpable scar which is to be expected at this point. He has some mild tenderness over the scar. He demonstrated that he felt like he was about to lock, with his MCP joint in extension and his PIP joint held in ~70 degrees of flexion. Again we did not see any actual locking or catching Psych Appearance: grossly normal Affect: normal affect Attitude: cooperative Assessment & Plan Assessment & Plan (1) Trigger finger, right ring finger: Code(s): M65.341 - Trigger finger, right ring finger Category: Medical Plan Assessment & Plan: 1. Right ring finger trigger finger, S/P release DOS: 12/05/23 The patient appears to be doing well post-operatively. He reports continuing issues with locking of his ring finger when he wakes up or when performing his at-home exercises. He had no locking or catching before leaving the OR and he had no locking today in clinic. I would like to be sure that he is actually having a persistent trigger finger before considering possible operative intervention to remove the ulnar half of the FDS tendon. I recommend he try OT hand therapy first, to see if they can resolve his issues before having to consider surgery I ordered OT hand therapy to work on desensitization at the incision site, and normalizing range of motion and function. He will follow up in 6 weeks to see how he is doing Scribed for Kathy Bonilla MD by Cameron Birmingham, medical and scientific illustrator, on 02/01/24 at 2:20 PM, EST. Orders: Orders OT Evaluation and Treatment Today M65.341 - Trigger finger, right ring finger Scribe Plan - Not visible on output: Scribed for Kathy Bonilla MD by Cameron Birmingham medical and scientific illustrator, on [ ] at [ ], EST. Coding Level of Care Code Global (82782) Diagnoses Trigger finger, right ring finger M65.341
== END 2024-02-01 15:48 | disposition home or self-care (01) ==
LOC: HO.HOS 13:55
PROVIDERS: PCP Internal Medicine Medical Oncology; Visit Provider Orthopaedic Surgery
DX: M65.341 Trigger finger, right ring finger (principal)
CPT/HCPCS: 99024

== ENCOUNTER → 2024-02-01 13:55 | Outpatient (BNVA) | payer MEDICARE, MEDICAID, SELFPAY | PROVIDERS: PCP Internal Medicine Medical Oncology; Visit Provider Orthopaedic Surgery | DX: M65.341 Trigger finger, right ring finger (principal) | CPT/HCPCS: 99212 ==

== ENCOUNTER 2024-02-15 13:39 | Outpatient (RCR) | payer MEDICARE, MEDICAID, SELFPAY ==
--- NOTE | 2024-02-15 15:11 | MHC.OT.EP ---
[address] [phone] Occupational Therapy Plan of Care Patient Name: Carlos Cabrera Date of Evaluation: 02/15/24 Diagnosis: S/P R RF TRIGGER FINGER RELEASE Pain Location: PAINFREE AT REST VOLAR MCP OF R RF 5-6/10 OCCASIONAL Pain Score: 0-6/10 Pain Scale Used: Numeric (0 - 10) Assessment: 63 Y/O M WHO IS 10 WEEKS POST OP TRIGGER FINGER RELEASE OF RIGHT RING FINGER. DOS 12/05/[address] MONAE. HE IS CURRENTLY C/O'ING OCCASIONAL LOCKING OF R RF, MOSTLY WITH PROLONGED USE OF WEED ORION. HE IS MOSTLY PAINFREE, YET OCCASIONAL MODERATE PAIN WITH IADLs IN STATIC/ PROLONGED FLEXION. HIS ROM AND STRENGTH ARE WFL. A 27% LIMITATION IS REPORTED PER THE QUICK DASH ASSESSMENT. ONGOING SKILLED OT IS WARRANTED TO ADDRESS SCAR MOBILIZATION, DESENSITIZATION, STRENGTH AND Pt EDUCATION. Frequency and Duration: The patient will be seen 1X/WEEK FOR 4 WEEKS Short Term Goals: SEE BELOW Senior Care Goals: IND HEP IND SCAR MOBILIZATION TOLERATE >8 MINS OF ROUGH TEXTURES TO R PALM IND JT PROTECTION/ ACTIVITY MODIFICATION Treatment Plan: Therapeutic Exercise Therapeutic Activity Home Exercise Program Splinting Neuro Re-ed Patient Education Desensitization/Sensory Re-ed Edema Control ADL Training Ultrasound NMES Iontophoresis Paraffin Fluidotherapy MHP Cold Packs Joint Mobilization Soft Tissue Mobilization Kinesiotaping Other (see comments) Electronically Signed By: CORRINA SHAFFER OTR/L Please Sign and return to therapist. Thank you once again for your referral.
--- NOTE | 2024-03-30 13:26 | MHC.OT.DC ---
[address] [phone] F: [phone] Occupational Therapy Discharge Note Patient Name: Carlos Cabrera Provider: Kathy Bonilla Diagnosis: S/P R RF TRIGGER FINGER RELEASE Date of Surgery: 12/05/23 Date of Evaluation: 02/15/24 Date of Discharge: 03/30/24 Treatments to Date: 1 Cancellations to Date: 2 No Shows to Date: 1 Discharge Status: Visit Non-compliance Discharge Summary: MR CABREAR CAME FOR HIS INITIAL EVAL AND FAILED TO ATTEND ADDITIONAL SESSIONS. HE WILL BE D/C'D FROM OT AT THIS TIME. Electronically Signed By: CORRINA SHAFFER OTR/Jesus Manuel Reviewed/agree with student documentation: N/A Therapist: Please Sign and return to therapist, thank you for your referral.
== END 2024-03-30 13:25 | disposition home or self-care (01) ==
LOC: HO.OT 13:39
PROVIDERS: PCP Internal Medicine Medical Oncology; Visit Provider Orthopaedic Surgery
DX: M65.341 Trigger finger, right ring finger (principal)
CPT/HCPCS: 29130; 97165; 97760

== ENCOUNTER 2024-03-27 14:10 | Outpatient (AMB) | payer MEDICARE, MEDICAID, SELFPAY ==
--- NOTE | 2024-03-27 14:16 | MHC.OFFVIS ---
Vital Signs 03/27/24 14:22 Height 5 ft 8 in Weight 219 lb BMI 33.3 Handedness Right Intake Visit Reasons: OV- RT RF trigger 12/05/23 AR/Hand locking up Intake Note: Carlos is a 63 year old right hand dominant male who presents today for evaluation of right ring finger locking s/p right ring finger trigger release, DOS 12/05/23 w/ Dr. Bonilla. Patient reports he discontinued OT because they gave him a block to wear on his finger at night but when he woke up the next day he was unable to bend his finger and said it was extremely painful. He expresses he called OT and they advised him to follow up with orthopedics. He states his symptoms have not improved since his last visit. Allergies No Known Allergies Allergy (Verified 03/27/24 14:20) HPI HPI OV- RT RF trigger 12/05/23 AR/Hand locking up: Details: Patient is a 63-year-old male who presents for evaluation of continued right ring finger locking and catching after ring finger trigger release, DOS 12/05/2023. Today, the patient reports that his finger has been continuing to lock and catch on a fairly regular basis, and it requires manual release with the other hand. The patient inquires if there is any further intervention indicated for relief of his locking and catching. The patient reports that he does not experience any pain. Patient denies any numbness or tingling in the right upper extremity. No other acute complaints or concerns at this time. [facility] Medical History Arthritis Elevated cholesterol Surgical History History of revision of total knee arthroplasty History of back surgery History of arthroscopy of right knee History of total right knee replacement (~03/27/12) Family History Father No problems noted. Mother No problems noted. 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 Physical Exam Vital Signs: BMI result Body Mass Index 33.3 Const General: no acute distress and alert Orientation/consciousness: patient oriented x3 Neuro General: patient oriented x3 Extrem Other: Evaluation of Right Upper Extremity: The patient is alert, oriented, and in no acute distress Neuro: Median, Ulnar, Radial nerves motor and sensory intact and sensation is normal to the tips of all digits Vascular: Cap refill brisk ROM: He can make a fist and extend all his digits No locking or catching today in clinic His incision site is well healed, though he does have palpable scar which is to be expected at this point. He has some mild tenderness over the scar. He demonstrated that he felt like he was about to lock, with his MCP joint in extension and his PIP joint held in ~70 degrees of flexion. Again we did not see any actual locking or catching Psych Appearance: grossly normal Affect: normal affect Attitude: cooperative Assessment & Plan Assessment & Plan (1) Trigger finger, right ring finger: Code(s): M65.341 - Trigger finger, right ring finger Category: Medical Plan 1. Trigger finger, right ring finger Continuing to locking catch status post trigger release, DOS 12/05/2023 I educated the patient about the condition. I discussed both operative and nonoperative treatment options. The patient would like to proceed with surgery. The patient would like to proceed with the surgery under local anesthesia when given the choice between local or general. The risks and benefits of operative treatment were discussed with the patient and the patient wishes to proceed with surgery. These risks include, but are not limited to, risk of damage to blood vessels, nerves, tendons, infection, recurrence, incomplete relief of preoperative symptoms, persistent pain, possible need for further surgery, and the risks associated with regional blocks and/or anesthesia. Plan is to take the patient to the operating room at some point in the next few weeks for the following procedures: 1. Ulnar slip partial flexor digitorum superficialis tenotomy under local anesthesia All of the preoperative paperwork including the consent was discussed today. All of the patient's questions were answered in the clinic today. The patient understands that they will be in contact with our medical or surgical instrument maker to discuss scheduling their procedure. Patient denies diabetes, blood thinners, asthma, heart issues, lung issues, kidney issues, or current smoking. Coding Level of Care Code Est Pt Level 4 (35869) Diagnoses Trigger finger, right ring finger M65.341
[2024-03-27 14:22] VITALS: BMI 33.3
== END 2024-03-27 15:50 | disposition home or self-care (01) ==
PROVIDERS: PCP Internal Medicine Medical Oncology; Visit Provider Orthopaedic Surgery
DX: M65.341 Trigger finger, right ring finger (principal)
CPT/HCPCS: 99214

== ENCOUNTER → 2024-03-27 14:10 | Outpatient (BNVA) | payer MEDICARE, MEDICAID, SELFPAY | PROVIDERS: PCP Internal Medicine Medical Oncology; Visit Provider Orthopaedic Surgery | DX: M65.341 Trigger finger, right ring finger (principal); Z98.890 Other specified postprocedural states | CPT/HCPCS: 99212 ==

== ENCOUNTER 2024-10-08 06:00 | Outpatient (REF) | payer MEDICARE, SELFPAY ==
[2024-10-08 06:17] LABS: MANUAL DIFF FLAG NO
[2024-10-08 07:18] LABS: Basophils Absolute Auto 0.1 X10*3/uL (0.0-0.2); Basophils Percent Auto 0.9 % (0-2); Eosinophils Absolute Auto 0.3 X10*3/uL (0.0-0.4); Eosinophils Percent Auto 5.5 % (0-4); Hematocrit 44.2 % (42.0-52.0); Hemoglobin 14.9 g/dl (14.0-18.0); Imm Gran Abs Auto 0.01 X10*3/uL (0.00-0.03); Imm Gran Pct Auto 0.2 % (0.0-0.4); Lymphocytes Absolute Auto 2.9 X10*3/uL (1.2-4.9); Lymphocytes Percent Auto 49.7 % (20-40); Mean Corpuscular HGB Conc 33.7 g/dl (31.0-36.0); Mean Corpuscular Volume 86.2 fL (80.0-98.0); Mean Platelet Volume 9.6 fL (9.4-12.4); Monocytes Absolute Auto 0.4 X10*3/uL (0.1-1.2); Neutrophils Absolute Auto 2.2 x10*3/uL (2.0-8.3); Neutrophils Percent Auto 36.7 % (45-73); Platelet Count 281 X10*3/uL (160-400); Red Blood Count 5.13 X10*6/uL (4.60-5.80); Red Cell Distribution Width 12.7 % (11.0-16.0); White Blood Count 5.9 X10*3/uL (4.8-10.8)
[2024-10-08 07:55] LABS: Alanine Aminotransferase 21 U/L (0-40); Albumin Level 4.2 g/dL (3.5-5.0); Alkaline Phosphatase 52 U/L (39-117); Anion Gap 10 (12-20); Aspartate Amino Transferase 24 U/L (5-37); Bilirubin Total 0.4 mg/dL (0.0-1.0); Blood Urea Nitrogen 12 mg/dL (9-16); Calcium 9.8 mg/dL (8.4-10.2); Carbon Dioxide 26 mmol/L (22-29); Chloride 108 mmol/L (96-108); Cholesterol 206 mg/dL (<200); Estimated Glomerular Filt Rate > 60; Glucose Fasting 108 mg/dL (60-99); HDL Cholesterol 34 mg/dL (>40); LDL Cholesterol Calculated 143 mg/dL (<100); Potassium 4.1 mmol/L (3.3-5.1); Sodium 140 mmol/L (135-145); Total Protein 7.8 g/dL (6.5-8.0); Triglycerides 149 mg/dL (<150)
[2024-10-08 08:10] LABS: Prostate Specific Antigen 0.55 ng/mL (<0.05-4.0)
== END 2024-10-08 06:01 | disposition home or self-care (01) ==
LOC: HO.LAB 06:00
PROVIDERS: PCP Internal Medicine Medical Oncology; Visit Provider Internal Medicine Medical Oncology
DX: E78.5 Hyperlipidemia, unspecified (principal); E66.9 Obesity, unspecified; N40.0 Benign prostatic hyperplasia without lower urinary tract symptoms; Z12.5 Encounter for screening for malignant neoplasm of prostate
CPT/HCPCS: 36415; 80053; 80061; 84153; 85025